=== PATIENT | female | born 1955 | race Caucasian/White ===

== ENCOUNTER 2016-05-20 10:17 | Emergency (ER) | payer SELFPAY ==
[~2016-05-20] VITALS: Ht 154.9 cm; Wt 61.3 kg
[2016-05-20 10:19] VITALS: BP 160/65; PULSE 72; RESP 15; TEMP 98.1; O2SAT 95
--- NOTE | 2016-05-20 11:47 | PD ---
HPI Chief Complaint: Pain: Acute or Chronic Time Seen by Provider: 11:47 Travel History International Travel<30 days: No Contact w/Intl Traveler<30days: No Traveled to known affect area: No History of Present Illness HPI 60-year-old female presents to the emergency Department with complaint of right leg pain since May 11. Patient is [place]-speaking and a professional clinical nursing assistant was used to translate. Denies injury or fall did denies leg edema. Patient did strain her leg on after slipping on a wet floor, but the pain started prior to this incident. Denies history of DVT or PE. Denies recent travel, surgery, hospitalization. Denies paresthesias, loss of sensation , decreased range of motion, decreased strength to the affected extremity. Patient says the pain goes from her right hip all the way down to her toe. Pain is worse in the calf. She denies fever, chills, nausea, vomiting. Denies chest pain, shortness of breath, abdominal pain, nausea, vomiting. Denies hemoptysis. Saw her primary care provider and was given ibuprofen which helped the pain at first, but does not help the pain now. Pain is constant and unrelieved. No known relieving factors. Denies significant past medical history. No known allergies. No other modifying factors or associated signs and symptoms. PFSH Past Medical History Medical History: Denies Significant Hx Diminished Hearing: No ?: Not Past Surgical History Cholecystectomy: Yes Social History Alcohol Use: No Tobacco Use: No Substance Use: No Allergies-Medications (Allergen,Severity, Reaction): Coded Allergies: No Known Allergies (Unverified , 05/20/16) Reported Meds & Prescriptions Reported Meds & Active Scripts Active No Active Prescriptions or Reported Medications Review of Systems Except as stated in HPI: all other systems reviewed are Neg Physical Exam Narrative GENERAL: Well-nourished, well-developed female patient, in no acute distress SKIN: Warm and dry. HEAD: Atraumatic. Normocephalic. EYES: Pupils equal and round. No scleral icterus. No injection or drainage. ENT: Mucosa pink and moist. Airway patent. NECK: Trachea midline. CARDIOVASCULAR: Regular rate and rhythm. No murmur appreciated. RESPIRATORY: No accessory muscle use. Clear and equal to auscultation bilaterally. GASTROINTESTINAL: Abdomen soft, non-tender, nondistended. Bowel sounds active 4 quadrants. Nondistended, nonrigid. MUSCULOSKELETAL: Right lower extremity supple and non-tense with 2+ pedal pulse and sensory intact without erythema or edema; full range of motion and strength. Reproducible tenderness on palpation to the posterior upper calf. No obvious deformities. No clubbing. No cyanosis. No edema. NEUROLOGICAL: Awake and alert. Oriented 3. No obvious cranial nerve deficits. Motor grossly within normal limits. Normal speech. PSYCHIATRIC: Appropriate mood and affect; insight and judgment normal. Data Data Last Documented VS Vital Signs Date Time Temp Pulse Resp B/P Pulse Ox O2 Delivery O2 Flow Rate FiO2 05/20/16 10:19 98.1 72 15 160/65 95 Orders Us Leg Venous Doppler (05/20/16 ) Ketorolac Inj (Toradol Inj) (05/20/16 12:00) Orphenadrine Inj (Norflex Inj) (05/20/16 12:00) MDM Medical Decision Making Medical Screen Exam Complete: Yes Emergency Medical Condition: Yes Medical Record Reviewed: Yes Differential Diagnosis DVT, leg strain, sciatica Narrative Course 60-year-old female with right leg pain since May 11. Denies injury, strain , fall. Followed up with her primary care provider was given ibuprofen which was helping at first but no relief now. Pain is worsened. Right lower extremity supple and non-tense with 2+ pedal pulse and sensory intact and without erythema or edema. Patient does have significant reproducible tenderness to the posterior calf. I will order an ultrasound to rule out thrombosis. Toradol and Norflex administered in the ER. Right leg venous ultrasound ordered. 1409: Right leg venous ultrasound concludes no evidence of DVT. Robaxin and ibuprofen prescribed for home. Patient is medically cleared and stable for discharge. Discussed reasons to return to the emergency department. Instructed patient to follow up with primary care provider. Patient agrees with treatment plan. The patients vital signs are stable and the patient is stable for outpatient follow-up and treatment. Patient discharged home, stable and in no acute distress. Diagnosis Primary Impression: Right leg pain Referrals: Primary Care Physician Patient Instructions: General Instructions, Leg Pain (ED), Sciatica (ED) Additional Instructions: Tylenol or ibuprofen as directed and as needed for pain Robaxin as prescribed and as needed for muscle spasms Heating pad and/or ice to affected area to reduce pain Avoid aggravating activities; increase activity as tolerated Follow-up with primary care provider Return to emergency department immediately with worsening of symptoms Med/Other Pt SpecificInfo: Prescription(s) given Scripts Ibuprofen 800 Mg [id number] Mg PO Q6HR PRN (PAIN) #30 TAB Ref 0 Prov:Bekah Ha 05/20/16 Methocarbamol (Robaxin)500 Mg [id number] Mg PO QID PRN (MUSCLE SPASM) #30 TAB Ref 0 Prov:Bekah Ha 05/20/16 Disposition: 01 DISCHARGE HOME Condition: Stable Bekah Ha May 20, 2016 11:47
[2016-05-20] MEDS ORDERED: ORPHENADRINE INJ 60 MG/2 ML AMP IM ONE (12:00)
[2016-05-20] MEDS ORDERED: KETOROLAC TROMETHAMINE 60 MG/2 ML (IM) VIAL IM ONE (12:00)
--- NOTE | 2016-05-20 13:31 | RADRPT ---
EXAM DATE/TIME: 05/20/2016 12:28 [facility] COMPARISON: No previous studies available for comparison. INDICATIONS : Right leg pain. MEDICAL HISTORY : Gallbladder disease. SURGICAL HISTORY : Cholecystectomy. ENCOUNTER: Initial ACUITY: 1 week PAIN SCORE: 5/10 LOCATION: Right leg. TECHNIQUE: Venous ultrasound of the leg was performed from the inguinal ligament to the proximal calf. Real-justin e, color Doppler and spectral tracing, compression and augmentation techniques were used. FINDINGS: There is normal compressibility of the deep venous system from the inguinal region to the proximal ca lf. No echogenic clot is seen in the lumen of the common femoral, femoral, popliteal, and posterior tibial veins. There is a normal response of the venous system to proximal and distal augmentation an d respiration. CONCLUSION: No evidence of right lower extremity DVT. Juanpablo Seals MD on May 20, 2016 at 13:29 Board Certified Radiologist. This report was verified electronically.
[2016-05-20] MEDS ORDERED: IBUP800T23 PO (14:10)
[2016-05-20] MEDS ORDERED: ROBA500T PO (14:10)
[2016-05-20 14:56] VITALS: BP 135/68
== END 2016-05-20 14:57 | disposition home or self-care (01) ==
LOC: NEPB 10:17
DX: M79.604 Pain in right leg (principal)
CPT/HCPCS: 93971; 96372; 99283; J1885; J2360